=== PATIENT | female | born 1975 | race Caucasian/White ===

== ENCOUNTER 2023-05-01 13:19 | Emergency (ER) | payer OTHER, SELFPAY ==
[2023-05-01 13:25] VITALS: BP 167/102; PULSE 84; RESP 18; TEMP 37.3; O2SAT 99; BMI 39.1
[2023-05-01] MEDS: ADACEL DIPH,PERTUSS(ACELL),TET VAC/PF 0.5 ML ADULT SYRINGE IM (16:41)
[2023-05-01] MEDS: AMOXICILLIN/POTASSIUM CLAV 1 TAB TABLET PO (17:40)
[2023-05-01] MEDS: SURGIFOAM GEL SPONGE SIZE 100 1 EACH TOPICAL (17:40)
--- NOTE | 2023-05-01 18:17 | ED.GENADUL1 ---
Documented by User: Maci Mccauley 05/01/23 18:27 HPI - General Adult General Chief complaint: Wound/Laceration Stated complaint: RIGHT FINGER INJURY Time Seen by Provider: 05/01/23 13:24 Source: patient Mode of arrival: walk-in Limitations: no limitations History of Present Illness HPI narrative: 47-year-old female presents her with fingertip amputation. She states she was cutting a potato with a knife just prior to arrival and cooperative for finger. Patient has been waiting due to volume in emergency room in the waiting room for approximately four hours. She's been using pressure on it. Patient has small amount of bleeding losing noted when she comes back to emergency room. She has not updated tetanus. He says this is tip avulsion of her right 5th digit. Related Data Previous Rx's Medication Instructions Recorded amoxicillin 500 mg-potassium 1 tab PO BID #20 tabs 05/01/23 clavulanate 125 mg tablet (Augmentin) Allergies Allergy/AdvReac Type Severity Reaction Status Date / Time Sulfa (Sulfonamide AdvReac Intermediate Verified 05/01/23 13:25 Antibiotics) Review of Systems ROS Narrative All Systems are negative except as noted/marked.All systems reviewed and otherwise negative PFSH PFS Social History Smoking status: Never smoker Exam Narrative Exam Narrative: Nurses note and vital signs reviewed and patient is not hypoxic. General: The patient appears well and in no apparent distress. Patient is resting comfortably on cart. Skin: Warm, dry, no pallor noted. There is no rash noted. Head: Normocephalic, atraumatic Musculoskeletal: 5th digit tip amputation, small amount of bleeding The patient has no evidence of calf tenderness, no pitting edema, symmetrical pulses noted bilaterally Neurological: A&O x4, normal speech Psychiatric: Cooperative Constitutional Vital Signs, click to edit/add: Last Vital Signs Temp 99.2 F 05/01/23 13:25 Pulse 84 05/01/23 13:25 Resp 18 05/01/23 13:25 BP 167/102 H 05/01/23 13:25 Pulse Ox 99 05/01/23 13:25 O2 Del Method Room Air 05/01/23 13:25 Course Vital Signs Vital signs: Vital Signs Temperature 99.2 F 05/01/23 13:25 Pulse Rate 84 05/01/23 13:25 Respiratory Rate 18 05/01/23 13:25 Blood Pressure 167/102 H 05/01/23 13:25 Pulse Oximetry 99 05/01/23 13:25 Oxygen Delivery Method Room Air 05/01/23 13:25 Temperature 99.2 F 05/01/23 13:25 Pulse Rate 84 05/01/23 13:25 Respiratory Rate 18 05/01/23 13:25 Blood Pressure 167/102 H 05/01/23 13:25 Pulse Oximetry 99 05/01/23 13:25 Oxygen Delivery Method Room Air 05/01/23 13:25 Medical Decision Making MDM Narrative Medical decision making narrative: Fingertip avulsion, amputation, laceration. Patient presented here to the emergency room within injury to the distal 5th tip. She did bring the tip of the finger with her, small area of avulsed skin. No bony involvement.She was cutting with a knife prior to arrival. She is not up-to-date on tetanus. Area was soaked in Hibiclens normal saline. Anesthetized one percent lidocaine solution locally. I did attempt to stop the bleeding with Gelfoam and Silver nitrate. Once the area was anesthetized we did use cautery and was able to get most of the bleeding stopped. Pressure dressing with Gelfoam was then applied. Structure for treating a dresser given the patient as well as supplies to go home with Gelfoam and 4 x 4 dressings. Patient is given prescription for Augmentin given 1st dose here as well as [place]. Given 1st dose here as well. Patient instructed to return to emergency room with any streaking or signs or symptoms of infection. Follow up with orthopedics or primary care physician. Differential Diagnosis Differential Diagnosis: Laceration, avulsion, amputation of fingertip Medical Records Medical records reviewed: Yes I reviewed the patient's medical records Discharge Plan Discharge Chief Complaint: Wound/Laceration Clinical Impression: Amputation of finger tip Patient Disposition: Home, Self-Care Time of Disposition Decision: 18:14 Condition: Good Prescriptions / Home Meds: New amoxicillin-pot clavulanate [Augmentin] 500-125 mg tablet 1 tab PO BID Qty: 20 0RF Instructions: Finger Amputation (ED) Stand Alone Forms: Portal Instructions Referrals: Inés Hodges MD [Primary Care Provider] - 1 week Viraj Lerma MD [Physician] - 1 week Discharge Date/Time: 05/01/23 18:23 Documented by User: Niya Irvin MD 05/01/23 21:11 HPI - General Adult General Chief complaint: Wound/Laceration Stated complaint: RIGHT FINGER INJURY Time Seen by Provider: 05/01/23 13:24 Related Data Previous Rx's Medication Instructions Recorded amoxicillin 500 mg-potassium 1 tab PO BID #20 tabs 05/01/23 clavulanate 125 mg tablet (Augmentin) Allergies Allergy/AdvReac Type Severity Reaction Status Date / Time Sulfa (Sulfonamide AdvReac Intermediate Verified 05/01/23 13:25 Antibiotics) PFSH PFSH Social History Smoking status: Never smoker Exam Constitutional Vital Signs, click to edit/add: Last Vital Signs Temp 99.2 F 05/01/23 13:25 Pulse 84 05/01/23 13:25 Resp 18 05/01/23 13:25 BP 167/102 H 05/01/23 13:25 Pulse Ox 99 05/01/23 13:25 O2 Del Method Room Air 05/01/23 13:25 Course Vital Signs Vital signs: Vital Signs Temperature 99.2 F 05/01/23 13:25 Pulse Rate 84 05/01/23 13:25 Respiratory Rate 18 05/01/23 13:25 Blood Pressure 167/102 H 05/01/23 13:25 Pulse Oximetry 99 05/01/23 13:25 Oxygen Delivery Method Room Air 05/01/23 13:25 Temperature 99.2 F 05/01/23 13:25 Pulse Rate 84 05/01/23 13:25 Respiratory Rate 18 05/01/23 13:25 Blood Pressure 167/102 H 05/01/23 13:25 Pulse Oximetry 99 05/01/23 13:25 Oxygen Delivery Method Room Air 05/01/23 13:25 Medical Decision Making MDM Narrative Medical decision making narrative: Fingertip avulsion, amputation, laceration. Patient presented here to the emergency room within injury to the distal 5th tip. She did bring the tip of the finger with her, small area of avulsed skin. No bony involvement.She was cutting with a knife prior to arrival. She is not up-to-date on tetanus. Area was soaked in Hibiclens normal saline. Anesthetized one percent lidocaine solution locally. I did attempt to stop the bleeding with Gelfoam and Silver nitrate. Once the area was anesthetized we did use cautery and was able to get most of the bleeding stopped. Pressure dressing with Gelfoam was then applied. Structure for treating a dresser given the patient as well as supplies to go home with Gelfoam and 4 x 4 dressings. Patient is given prescription for Augmentin given 1st dose here as well as [place]. Given 1st dose here as well. Patient instructed to return to emergency room with any streaking or signs or symptoms of infection. Follow up with orthopedics or primary care physician. Attending physician attestation I have reviewed the mid-level documentation, agree with the documentation, medical decision making and treatment plan as outlined by the mid-level provider. Discharge Plan Discharge Chief Complaint: Wound/Laceration Clinical Impression: Amputation of finger tip Patient Disposition: Home, Self-Care Time of Disposition Decision: 18:14 Condition: Good Prescriptions / Home Meds: New amoxicillin-pot clavulanate [Augmentin] 500-125 mg tablet 1 tab PO BID Qty: 20 0RF Instructions: Finger Amputation (ED) Stand Alone Forms: Portal Instructions Referrals: Inés Hodges MD [Primary Care Provider] - 1 week Viraj Lerma MD [Physician] - 1 week Discharge Date/Time: 05/01/23 18:23
== END 2023-05-01 18:23 | disposition home or self-care (01) ==
PROVIDERS: Emergency Provider Emergency Medicine; PCP Family Medicine
DX: S61.206A Unspecified open wound of right little finger without damage to nail, initial encounter (principal); W26.0XXA Contact with knife, initial encounter; Z23 Encounter for immunization
CPT/HCPCS: 90471; 90715; 99284

== ENCOUNTER 2023-05-02 15:14 | Emergency (ER) | payer OTHER, SELFPAY ==
[2023-05-02 15:18] VITALS: BP 180/100; PULSE 107; RESP 16; TEMP 36.8; O2SAT 100; BMI 41.3
[2023-05-02] MEDS: SURGIFOAM GEL SPONGE SIZE 100 1 EACH TOPICAL (17:35)
--- NOTE | 2023-05-02 17:39 | PC.NURSE ---
RN assisted physician with wound dressing. Gelfoam overridden from pyxis. assisted physician in nidia gelfoam, splint, and wrap dressing. patient tolerated well. physician told patient she will be at observed in ED to make sure bleeding is controlled. patient denies any needs at this time.
--- NOTE | 2023-05-02 17:56 | ED.WOUNDLAC1 ---
HPI - Wound/Laceration General Chief Complaint: Wound/Laceration Stated Complaint: CUT FINGER CONT. BLEEDING, WAS HERE YESTERDAY Time Seen by Provider: 05/02/23 15:24 Source: patient Mode of arrival: walk-in History of Present Illness HPI narrative: The patient had a amputation of the tip of her right index finger yesterday and she was in the ER when she had cauterization of the tip and dressing but she noted that there was still bleeding and that while she is in the ER Related Data Previous Rx's Medication Instructions Recorded amoxicillin 500 mg-potassium 1 tab PO BID #20 tabs 05/01/23 clavulanate 125 mg tablet (Augmentin) Allergies Allergy/AdvReac Type Severity Reaction Status Date / Time Sulfa (Sulfonamide AdvReac Intermediate Verified 05/02/23 15:25 Antibiotics) Review of Systems ROS Status of ROS 10 or more systems reviewed and unremarkable except as noted in history and below PFSH PFS Social History Smoking status: Never smoker Exam Narrative Exam Narrative: Nurses notes and vital signs reviewed and patient is not hypoxic. General: Well-appearing and in no apparent distress. Skin: Warm, dry, no pallor noted. No rash. Head: Normocephalic, atraumatic. Neck: Supple, non-tender. Eye: Pupils are equal, round and EOMI. No scleral icterus. Ears, Nose, Mouth, and Throat: TM are clear, no nasal mucosal hypertrophy. Oral mucosa is moist, no posterior oropharynx erythema, uvula is mid-line Cardiovascular: Regular Rate and Rhythm without murmur, gallop or rub. Respiratory: No accessory muscle use or respiratory distress. Lungs are clear to auscultation, no wheezing, rales or rhonchi Chest Wall: no tenderness Back: No midline thoracic or lumbar vertebral tenderness. No CVA tenderness Musculoskeletal: normal ROM, no calf or popliteal tenderness, no lower extremity edema/swelling GI: Abdomen is soft, non-distended. Normal bowel sounds. No masses appreciated. No tenderness to palpation. No rebound, guarding, or rigidity noted. Neurological: A&O x4. No cranial nerve dysfunction observed. No truncal ataxia. Moves all extremities. Sensation intact. Psychiatric: Cooperative and interactive. Normal mood and affect. Examination of the right index finger showed that the patient have the tip cauterized with bleeding controlled after applying the tourniquet Constitutional Vital Signs, click to edit/add: Last Vital Signs Temp 98.3 F 05/02/23 15:18 Pulse 107 H 05/02/23 15:18 Resp 16 05/02/23 15:18 BP 180/100 H 05/02/23 15:18 Pulse Ox 100 05/02/23 15:18 O2 Del Method Room Air 05/02/23 15:18 Course Vital Signs Vital signs: Vital Signs Temperature 98.3 F 05/02/23 15:18 Pulse Rate 107 H 05/02/23 15:18 Respiratory Rate 16 05/02/23 15:18 Blood Pressure 180/100 H 05/02/23 15:18 Pulse Oximetry 100 05/02/23 15:18 Oxygen Delivery Method Room Air 05/02/23 15:18 Temperature 98.3 F 05/02/23 15:18 Pulse Rate 107 H 05/02/23 15:18 Respiratory Rate 16 05/02/23 15:18 Blood Pressure 180/100 H 05/02/23 15:18 Pulse Oximetry 100 05/02/23 15:18 Oxygen Delivery Method Room Air 05/02/23 15:18 MDM - Wound/Laceration MDM Narrative Medical decision making narrative: Applied straight finger splint and Gelfoam with Scar wrap and the patient was instructed to elevate the hand She was monitored in the ER for a while during which she had no more bleeding The patient discharged home with instructions for wound care and follow-up with her doctor Discharge Plan Discharge Chief Complaint: Wound/Laceration Clinical Impression: Visit for wound care Patient Disposition: Home, Self-Care Time of Disposition Decision: 17:59 Condition: Good Prescriptions / Home Meds: No Action amoxicillin-pot clavulanate [Augmentin] 500-125 mg tablet 1 tab PO BID Qty: 20 0RF Instructions: Acute Wounds (ED) Stand Alone Forms: Portal Instructions Referrals: Inés Hodges MD [Primary Care Provider] - 1 week
--- NOTE | 2023-05-02 18:21 | PC.NURSE ---
observed patient for bleeding for 45min. patient has not saturated dressing as she was before. no changes since dressing applied.
== END 2023-05-02 18:29 | disposition home or self-care (01) ==
PROVIDERS: Emergency Provider Emergency Medicine; PCP Family Medicine
DX: S61.200D Unspecified open wound of right index finger without damage to nail, subsequent encounter (principal); W26.9XXD Contact with unspecified sharp object(s), subsequent encounter
CPT/HCPCS: 29130; 99282

== ENCOUNTER 2024-01-03 17:07 | Emergency (ER) | payer OTHER, SELFPAY ==
[2024-01-03 17:12] VITALS: BP 190/110; PULSE 90; TEMP 36.6; O2SAT 99; BMI 35.9
--- NOTE | 2024-01-03 17:24 | ED_ITS ---
HPI HPI - General Adult General Chief complaint: Urogenital-Female Stated complaint: LOWER ABDOMINAL PAIN Time Seen by Provider: 01/03/24 17:08 Source: patient Mode of arrival: walk-in History of Present Illness HPI narrative: Patient is a 48-year-old female who presents to the emergency department for 3- day history of urinary symptoms. She states she has had burning with urination and urinary frequency. She has not had any flank or back pain. She reports mild suprapubic pain. She has not had any hematuria and has no history of kidney issues or kidney stones. She is not concerned for . No medi cations taken prior to arrival. She has had no vomiting, diarrhea. Related Data Previous Rx's ?Medication ?Instructions ?Recorded ciprofloxacin HCl 500 mg tablet 500 mg PO BID #14 tabs 01/03/24 (Cipro) ondansetron 4 mg disintegrating 4 mg PO Q6H PRN nausea and 01/03/24 tablet vomiting #12 tabs phenazopyridine 200 mg tablet 200 mg PO Q8H 2 days #6 tabs 01/03/24 (Pyridium) Allergies Allergy/AdvReac Type Severity Reaction Status Date / Time Sulfa (Sulfonamide AdvReac Intermediate Verified 05/02/23 15:25 Antibiotics) Opioid HPI Opioid Management Most Recent Opioid Data: No Data to Display Review of Systems ROS Constitutional Denies: fever or chills Ears, nose, mouth, and throat Denies: throat pain or nasal congestion Cardiovascular Denies: chest pain Respiratory Denies: shortness of breath Gastrointestinal Reports: abdominal pain; Denies: nausea, vomiting or diarrhea Genitourinary Reports: painful urination, urinary frequency and pelvic pain Integumentary/Breast Denies: rash Neurological Reports: headache Allergic/Immunologic Denies: hives PFSH [facility] Social History Smoking status: Never smoker Exam Narrative Exam Narrative: Gen.: Awake, alert, in no distress Head: Normocephalic, atraumatic ENT: Moist mucous membranes Respiratory: No respiratory distress Gastrointestinal: Abdomen is soft, nondistended and nontender to palpation; No CVA or flank tenderness Extremities: Moves extremities equally Psych: Normal mood and affect Neuro: No focal neuro deficit Skin: Warm, dry, intact Constitutional Vital Signs, click to edit/add: Last Vital Signs Temp 97.9 F 01/03/24 17:12 Pulse 90 01/03/24 17:12 Resp 20 01/03/24 17:12 BP 180/110 H 01/03/24 17:49 Pulse Ox 99 01/03/24 17:12 O2 Del Method Room Air 01/03/24 17:12 Course Vital Signs Vital signs: Vital Signs Temperature 97.9 F 01/03/24 17:12 Pulse Rate 90 01/03/24 17:12 Respiratory Rate 20 01/03/24 17:12 Blood Pressure 190/110 H 01/03/24 17:12 Pulse Oximetry 99 01/03/24 17:12 Oxygen Delivery Method Room Air 01/03/24 17:12 Temperature 97.9 F 01/03/24 17:12 Pulse Rate 90 01/03/24 17:12 Respiratory Rate 20 01/03/24 17:12 Blood Pressure 180/110 H 01/03/24 17:49 Pulse Oximetry 99 01/03/24 17:12 Oxygen Delivery Method Room Air 01/03/24 17:12 Medical Decision Making MDM Narrative Medical decision making narrative: Urine is positive for UTI, patient treated with Cipro, Pyridium in the emergency department. Blood pressure was rechecked at 180/110 manually. Patient believed that she was taking her blood pressure medication, but stated that her blood pressure medication was Protonix. She was given education and instructed to have close follow-up with her PCP for reevaluation of her blood pressure. She verbalized understanding. Reevaluated by attending physician prior to di jesus. Patient was instructed to finish the entire course of her antibiotics and use Pyridium and Zofran for symptoms. Return to the ER if symptoms change or worsen Medical Records Medical records reviewed: Yes I reviewed the patient's medical records Lab Data Lab results reviewed: Yes I reviewed the patient's lab results Labs: Lab Results 01/03/24 Range/Units 17:25 Urine Color Lt. yellow (YELLOW) Urine Clarity Clear (CLEAR) Urine pH 6.0 (5.0-9.0) Ur Specific [place] >=1.030 A (1.005-1.025) Urine Protein Negative (NEG/TRACE) mg/dL Urine Glucose (UA) Negative (NEGATIVE) mg/dL Urine Ketones Negative (NEGATIVE) mg/dL Urine Occult Blood Small A (NEGATIVE) Urine Nitrite Positive A (NEGATIVE) Urine Bilirubin Negative (NEGATIVE) Urine Urobilinogen 0.2 (0.2-1.0) EU/dL Ur Leukocyte Esterase Moderate A (NEGATIVE) Urine RBC 5-10 A (0-2) #/HPF Urine WBC 10-20 A (NONE SEEN) #/HPF Ur Squamous Epith Cells Rare (NONE/RARE) #/LPF Urine Crystals None seen (None Seen) #/HPF Urine Bacteria Trace A (NONE SEEN) #/HPF Urine Casts None seen (NONE SEEN) #/LPF Urine Mucus None seen (NONE SEEN) Ur Culture Indicated? Yes Discharge Plan Discharge Stand Alone Forms: Portal Instructions Chief Complaint: Urogenital-Female Clinical Impression: Urinary tract infection Patient Disposition: Home, Self-Care Time of Disposition Decision: 17:46 Condition: Good Prescriptions / Home Meds: New phenazopyridine [Pyridium] 200 mg tablet 200 mg PO Q8H 2 Days Qty: 6 0RF ciprofloxacin HCl [Cipro] 500 mg tablet 500 mg PO BID Qty: 14 0RF ondansetron 4 mg tablet,disintegrating 4 mg PO Q6H PRN (Reason: nausea and vomiting) Qty: 12 0RF Print Language: Latvian Instructions: Urinary Tract Infection in Women (ED) Additional Instructions: Please finish the entire course of antibiotics (ciprofloxacin). Increase fluids over the next several days. Pyridium will help with your symptoms but it will cause your urine to turn orange, this is normal. Please follow up for a recheck of your blood pressure with Dr. Hodges's office this week Referrals: Inés Hodges MD [Primary Care Provider] - 1 week
[2024-01-03 17:29] LABS: Bilirubin Urine NEGATIVE (NEGATIVE); Blood Urine SMALL (NEGATIVE); Clarity Urine CLEAR (CLEAR); Color Urine LT. YELLOW (YELLOW); Glucose Urine UA NEGATIVE (NEGATIVE); Ketones Urine NEGATIVE (NEGATIVE); Leukocyte Esterase Urine MODERATE (NEGATIVE); Nitrite Urine POSITIVE (NEGATIVE); Protein Urine NEGATIVE (NEG/TRACE); Specific Gravity Urine >=1.030 (1.005-1.025); Urobilinogen Urine 0.2 EU/dL (0.2-1.0)
[2024-01-03 17:33] LABS: Urine Microscopic Indicated YES
[2024-01-03 17:41] LABS: Bacteria Urine TRACE #/HPF (NONE SEEN); Mucus Urine NONE SEEN (NONE SEEN); Squamous Epithelial Cell Urine RARE #/LPF (NONE/RARE)
[2024-01-03 17:42] LABS: Cast Seen? NONE SEEN #/LPF (NONE SEEN); Crystals Seen? None Seen #/HPF (None Seen); Urine Culture Indicated YES
[2024-01-03 17:49] VITALS: BP 180/110
[2024-01-03] MEDS: PHENAZOPYRIDINE 100 MG TABLET 200 MG PO (17:52)
[2024-01-03] MEDS: CIPROFLOXACIN HCL 500 MG TABLET PO (17:52)
[2024-01-03 17:56] VITALS: BP 180/110; PULSE 83; O2SAT 98
== END 2024-01-03 17:59 | disposition home or self-care (01) ==
PROVIDERS: Physician Assistant; Emergency Provider Emergency Medicine; PCP Family Medicine
DX: N39.0 Urinary tract infection, site not specified (principal)
CPT/HCPCS: 81001; 87086; 99283